=== PATIENT | male | born 1955 | race Caucasian/White ===

== ENCOUNTER 2017-03-23 01:35 | Emergency (ER) | payer OTHER ==
[2017-03-23 02:01] VITALS: TEMP 97.7
[2017-03-23 02:03] VITALS: PULSE 52
--- NOTE | 2017-03-23 02:15 | CPEKG ---
Heart Rate: 50 RR Interval: 1200 P-R Interval: 220 QRSD Interval: 82 QT Interval: 484 QTC Interval: 442 P [place]: 55 QRS [place]: 30 T Wave [place]: 44 EKG Severity - ABNORMAL ECG - EKG Impression: SINUS RHYTHM EKG Impression: FIRST DEGREE AV BLOCK EKG Impression: PROBABLE LEFT ATRIAL ABNORMALITY Electronically Signed By: Jose L Gamble 26-Mar-2017 17:09:30
--- NOTE | 2017-03-23 02:15 | CPEKG ---
Heart Rate: 50 RR Interval: 1200 P-R Interval: 220 QRSD Interval: 82 QT Interval: 484 QTC Interval: 442 P [place]: 55 QRS [place]: 30 T Wave [place]: 44 EKG Severity - ABNORMAL ECG - EKG Impression: SINUS RHYTHM EKG Impression: FIRST DEGREE AV BLOCK EKG Impression: PROBABLE LEFT ATRIAL ABNORMALITY Electronically Signed By: Jose L Gamble 26-Mar-2017 17:09:30
[2017-03-23 02:26] VITALS: BP 158/86; RESP 14; O2SAT 95
--- NOTE | 2017-03-23 02:41 | EDPHY ---
H & P Time Seen by Provider: 03/23/17 01:52 MST HPI/ROS: 62-year-old male presents complaining of elevated blood pressure tonight of 180/ 100. He states approximately 6 weeks ago he was seen by his primary care physician and at that time his blood pressures were running approximately 130/80 , after lengthy discussion they decided to start him on lisinopril 5 mg daily. He did not start the medicine at that time, he and his physician had decided that he would monitor his blood pressure daily and start medicine if it was trending upwards. He states it is usually approximately 130/80 and often after he goes for a long run it is actually 110/70. He denies any symptoms, including chest pain, weakness, difficulty with speech, shortness of breath. Review of systems As per [facility] General no fever no chills no weakness HEENT no eye pain no eye discharge. No eye redness, no sore throat Respiratory no cough, no shortness of breath Cardiac no chest pain, no peripheral edema GI no abdominal pain, no diarrhea, no constipation, no nausea, no vomiting no flank pain, no hematuria, no dysuria Musculoskeletal no myalgias, no joint pain Heme no easy bruising, no easy bleeding Endo no polyuria, no polydipsia Skin no rashes, no pruritus Neuro no syncope, no dizziness, no headaches Psych is no suicidal ideation, no homicidal ideation Past Medical/Surgical History: no significant hx Social History: denies smoking , alcohol or recreational drug use Smoking Status: Never smoked Physical Exam: 62-year-old male alert and oriented no acute distress nontoxic appearance afebrile HEENT atraumatic normocephalic, extraocular muscles intact, anicteric Oropharynx negative for erythema negative exudate, tolerating her own secretions Neck supple no meningismus Lungs clear to auscultation bilaterally Heart regular rate and rhythm without murmur rub or gallop Abdomen nondistended normoactive bowel sounds soft nontender Back no CVA tenderness, no step-offs, no spinal tenderness Extremities no cyanosis clubbing or edema Neuro alert and oriented, no focal deficits Constitutional: Initial Vital Signs Temperature (C) 36.5 C 03/23/17 01:40 [facility] Heart Rate 59 L 03/23/17 01:40 [facility] Respiratory Rate 14 03/23/17 01:40 [facility] Blood Pressure 204/114 H 03/23/17 01:40 MST O2 Sat (%) 99 03/23/17 01:40 MST O2 Delivery Mode Room Air Allergies/Adverse Reactions: No Known Allergies Allergy (Verified 03/23/17 02:01) Home Medications: Medication Instructions Recorded Lisinopril 03/23/17 Medical Decision Making - Diagnostics EKG Interpretation: Sinus bradycardia, first-degree AV block ED Course/Re-evaluation: Patient seen and evaluated for elevated blood pressure at home. EKG sinus bradycardia, first-degree AV block After reassurance, patient was noted to have blood pressure of 150/80 on multiple readings, observed for over 1 hour without specific intervention for blood pressure. Physical exam without signs of end-stage hypertension or hypertensive crisis. Impression Asymptomatic hypertension Possibly exacerbated by patient's anxiety and frequent blood pressure monitoring Plan Continue lisinopril 5 mg daily Discussed with her primary care physician in follow-up this week Differential Diagnosis: Hypertension Hypertensive crisis Hypertensive urgency Myocardial infarction Departure - Departure Disposition: Home, Routine, Self-Care Clinical Impression: Hypertension Condition: Good Instructions: Hypertension (ED) Additional Instructions: Follow up with your primary care this week. Referrals: Patient,NotPresent [Primary Care Provider] - As per Instructions
--- NOTE | 2017-03-23 02:41 | EDPHY ---
H & P Time Seen by Provider: 03/23/17 01:52 MST HPI/ROS: 62-year-old male presents complaining of elevated blood pressure tonight of 180/ 100. He states approximately 6 weeks ago he was seen by his primary care physician and at that time his blood pressures were running approximately 130/80 , after lengthy discussion they decided to start him on lisinopril 5 mg daily. He did not start the medicine at that time, he and his physician had decided that he would monitor his blood pressure daily and start medicine if it was trending upwards. He states it is usually approximately 130/80 and often after he goes for a long run it is actually 110/70. He denies any symptoms, including chest pain, weakness, difficulty with speech, shortness of breath. Review of systems As per [facility] General no fever no chills no weakness HEENT no eye pain no eye discharge. No eye redness, no sore throat Respiratory no cough, no shortness of breath Cardiac no chest pain, no peripheral edema GI no abdominal pain, no diarrhea, no constipation, no nausea, no vomiting no flank pain, no hematuria, no dysuria Musculoskeletal no myalgias, no joint pain Heme no easy bruising, no easy bleeding Endo no polyuria, no polydipsia Skin no rashes, no pruritus Neuro no syncope, no dizziness, no headaches Psych is no suicidal ideation, no homicidal ideation Past Medical/Surgical History: no significant hx Social History: denies smoking , alcohol or recreational drug use Smoking Status: Never smoked Physical Exam: 62-year-old male alert and oriented no acute distress nontoxic appearance afebrile HEENT atraumatic normocephalic, extraocular muscles intact, anicteric Oropharynx negative for erythema negative exudate, tolerating her own secretions Neck supple no meningismus Lungs clear to auscultation bilaterally Heart regular rate and rhythm without murmur rub or gallop Abdomen nondistended normoactive bowel sounds soft nontender Back no CVA tenderness, no step-offs, no spinal tenderness Extremities no cyanosis clubbing or edema Neuro alert and oriented, no focal deficits Constitutional: Initial Vital Signs Temperature (C) 36.5 C 03/23/17 01:40 [facility] Heart Rate 59 L 03/23/17 01:40 [facility] Respiratory Rate 14 03/23/17 01:40 [facility] Blood Pressure 204/114 H 03/23/17 01:40 MST O2 Sat (%) 99 03/23/17 01:40 MST O2 Delivery Mode Room Air Allergies/Adverse Reactions: No Known Allergies Allergy (Verified 03/23/17 02:01) Home Medications: Medication Instructions Recorded Lisinopril 03/23/17 Medical Decision Making - Diagnostics EKG Interpretation: Sinus bradycardia, first-degree AV block ED Course/Re-evaluation: Patient seen and evaluated for elevated blood pressure at home. EKG sinus bradycardia, first-degree AV block After reassurance, patient was noted to have blood pressure of 150/80 on multiple readings, observed for over 1 hour without specific intervention for blood pressure. Physical exam without signs of end-stage hypertension or hypertensive crisis. Impression Asymptomatic hypertension Possibly exacerbated by patient's anxiety and frequent blood pressure monitoring Plan Continue lisinopril 5 mg daily Discussed with her primary care physician in follow-up this week Differential Diagnosis: Hypertension Hypertensive crisis Hypertensive urgency Myocardial infarction Departure - Departure Disposition: Home, Routine, Self-Care Clinical Impression: Hypertension Condition: Good Instructions: Hypertension (ED) Additional Instructions: Follow up with your primary care this week. Referrals: Patient,NotPresent [Primary Care Provider] - As per Instructions
--- NOTE | 2017-03-23 02:41 | EDPHY ---
H & P Time Seen by Provider: 03/23/17 01:52 MST HPI/ROS: 62-year-old male presents complaining of elevated blood pressure tonight of 180/ 100. He states approximately 6 weeks ago he was seen by his primary care physician and at that time his blood pressures were running approximately 130/80 , after lengthy discussion they decided to start him on lisinopril 5 mg daily. He did not start the medicine at that time, he and his physician had decided that he would monitor his blood pressure daily and start medicine if it was trending upwards. He states it is usually approximately 130/80 and often after he goes for a long run it is actually 110/70. He denies any symptoms, including chest pain, weakness, difficulty with speech, shortness of breath. Review of systems As per [facility] General no fever no chills no weakness HEENT no eye pain no eye discharge. No eye redness, no sore throat Respiratory no cough, no shortness of breath Cardiac no chest pain, no peripheral edema GI no abdominal pain, no diarrhea, no constipation, no nausea, no vomiting no flank pain, no hematuria, no dysuria Musculoskeletal no myalgias, no joint pain Heme no easy bruising, no easy bleeding Endo no polyuria, no polydipsia Skin no rashes, no pruritus Neuro no syncope, no dizziness, no headaches Psych is no suicidal ideation, no homicidal ideation Past Medical/Surgical History: no significant hx Social History: denies smoking , alcohol or recreational drug use Smoking Status: Never smoked Physical Exam: 62-year-old male alert and oriented no acute distress nontoxic appearance afebrile HEENT atraumatic normocephalic, extraocular muscles intact, anicteric Oropharynx negative for erythema negative exudate, tolerating her own secretions Neck supple no meningismus Lungs clear to auscultation bilaterally Heart regular rate and rhythm without murmur rub or gallop Abdomen nondistended normoactive bowel sounds soft nontender Back no CVA tenderness, no step-offs, no spinal tenderness Extremities no cyanosis clubbing or edema Neuro alert and oriented, no focal deficits Constitutional: Initial Vital Signs Temperature (C) 36.5 C 03/23/17 01:40 [facility] Heart Rate 59 L 03/23/17 01:40 [facility] Respiratory Rate 14 03/23/17 01:40 [facility] Blood Pressure 204/114 H 03/23/17 01:40 MST O2 Sat (%) 99 03/23/17 01:40 MST O2 Delivery Mode Room Air Allergies/Adverse Reactions: No Known Allergies Allergy (Verified 03/23/17 02:01) Home Medications: Medication Instructions Recorded Lisinopril 03/23/17 Medical Decision Making - Diagnostics EKG Interpretation: Sinus bradycardia, first-degree AV block ED Course/Re-evaluation: Patient seen and evaluated for elevated blood pressure at home. EKG sinus bradycardia, first-degree AV block After reassurance, patient was noted to have blood pressure of 150/80 on multiple readings, observed for over 1 hour without specific intervention for blood pressure. Physical exam without signs of end-stage hypertension or hypertensive crisis. Impression Asymptomatic hypertension Possibly exacerbated by patient's anxiety and frequent blood pressure monitoring Plan Continue lisinopril 5 mg daily Discussed with her primary care physician in follow-up this week Differential Diagnosis: Hypertension Hypertensive crisis Hypertensive urgency Myocardial infarction Departure - Departure Disposition: Home, Routine, Self-Care Clinical Impression: Hypertension Condition: Good Instructions: Hypertension (ED) Additional Instructions: Follow up with your primary care this week. Referrals: Patient,NotPresent [Primary Care Provider] - As per Instructions
== END 2017-03-23 02:47 | disposition home or self-care (01) ==
LOC: CED 01:35
DX: I10 Essential (primary) hypertension (principal)